=== PATIENT | female | born 1970 | race Caucasian/White ===

== ENCOUNTER 2018-03-29 10:41 | Emergency (ER) | payer OTHER, MEDICAID, SELFPAY ==
[2018-03-29 10:55] VITALS: BP 153/98; PULSE 90; RESP 19; TEMP 36.8; O2SAT 100
[2018-03-29] MEDS: HYDROMORPHONE 2 MG INJ 1 MG IM ×2 (11:25→16:14)
[2018-03-29] MEDS: ALBUTEROL 2.5 MG/3 ML NEB INH (12:32)
--- NOTE | 2018-03-29 12:56 | PC.NURSE ---
Breath sounds clear after Albuterol Neb;
[2018-03-29 13:00] VITALS: BP 129/73; PULSE 77; RESP 14; O2SAT 99
[2018-03-29] MEDS: AMLODIPINE 5 MG TABLET 10 MG PO (14:48)
[2018-03-29 14:49] VITALS: BP 126/73; PULSE 72
[2018-03-29] MEDS: ENALAPRIL 5 MG TABLET 10 MG PO (14:49)
[2018-03-29] MEDS: hydroCHLOROthiazide 25 MG TABLET PO (14:49)
[2018-03-29] MEDS: NICOTINE 21 MG PATCH TOP (14:50)
--- NOTE | 2018-03-29 15:04 | ED_ITS ---
HPI - Back Pain/Injury General Chief Complaint: Back Pain/Injury Stated Complaint: back pain, uncontrolled bladder Time Seen by Provider: 03/29/18 10:47 Source: patient and family Mode of arrival: wheelchair Limitations: no limitations History of Present Illness HPI Narrative: Patient presents to the emergency department today with a chief complaint of worsening back pain and symptoms thought to be related. She has an extensive medical and lumbar history including multiple surgeries starting in 2000 and most recently in 2016. Today she presents with worsening pain which radiates to her right leg. Her right leg has become weak and continues to give out on her and she keeps falling. Additionally she has lost control of her bladder and is incontinent on occasion and cannot start her string when desired. Her 1st visit here was in early February with an MRI that seemed unremarkable for anything acute. She was encouraged to follow up with Orthopedics as an outpatient and ended up presenting to [facility] with worsening symptoms. A repeat MRI noted what could be spinal infection and the patient was transferred to [facility]. She was evaluated by spine and they thought it was more likely poor healing of an L to 3 laminectomy. She was encouraged to follow-up with Dr. Ly as an outpatient, but developed worsening symptoms and return here. She denies any new injury or trauma. She has had no fever or chills MD Complaint: back pain and back injury Onset (ago): year(s) (Overall her symptoms have lasted years however her current symptoms have been worsening over the past few days) Duration: constant Similar Symptoms Previously: Yes Location: lumbar spine Severity: severe Quality: burning Radiation: right leg Severity scale (1-10): 6 Relieving factors: none Exacerbating factors: movement Associated symptoms: weakness, difficulty walking, increased urinary frequency and urinary incontinence Related Data Home Medications Medication Instructions Recorded Confirmed amlodipine [Norvasc] 10 mg PO QDAY #0 02/13/18 03/29/18 clonidine HCl 0.1 mg PO BID #0 02/13/18 03/29/18 enalapril-hydrochlorothiazide 1 tab PO QDAY #0 02/13/18 03/29/18 albuterol sulfate [ProAir HFA] 1 puff INHALATION DIRECTED 03/29/18 03/29/18 clonazepam 0.5 mg PO QHS 03/29/18 03/29/18 clonazepam [Klonopin] 1 mg PO TID 03/29/18 03/29/18 oxycodone-acetaminophen 1 tab PO Q4-6H PRN MDD 6 tabs 03/29/18 03/29/18 Previous Rx's Medication Instructions Recorded gabapentin [Neurontin] 300 mg PO TID 30 Days #0 cap 02/13/18 Allergies Allergy/AdvReac Type Severity Reaction Status Date / Time acetaminophen [From ULTRACET] Allergy Unknown seizure Verified 03/29/18 10:55 alprazolam [From XANAX] Allergy Unknown seizure Verified 03/29/18 10:55 tramadol [From ULTRAM] Allergy Unknown seizure Verified 03/29/18 10:55 venlafaxine [From Effexor] Allergy Verified 03/29/18 10:55 codeine AdvReac Verified 03/29/18 10:55 Review of Systems Review of Systems All systems reviewed & are unremarkable except as noted in HPI and below Constitutional Denies chills, Denies fever(s), Denies lethargy and Reports weakness Eyes Denies change in vision, Denies eye discharge, Denies irritation and Denies loss of vision Cardiovascular Denies chest pain, Denies irregular heart rhythm, Denies lightheadedness, Denies palpitations and Denies orthopnea Gastrointestinal Gastrointestinal: Denies abdominal pain, Denies change in bowel habits, Denies diarrhea, Denies nausea and Denies vomiting Musculoskeletal Reports limited range of motion and Reports muscle weakness Integumentary/Breasts Denies pruritus, Denies erythema, Denies rash and Denies wounds Neurologic Denies loss of vision, Reports radicular pain and Reports weakness Endocrine Denies palpitations [facility] Medical History Angina at rest (Acute) Anxiety (Acute) COPD (chronic obstructive pulmonary disease) (Acute) Hepatitis C (Acute) Migraines (Acute) Surgical History History of lumbar surgery (Acute) Social History Smoking Status: Current every day smoker Exam Narrative Exam Narrative: Pleasant 47-year-old female is tearful, anxious, and in pain Initial Vital Signs Initial Vital Signs: Vital Signs Temperature 98.3 F 03/29/18 10:55 Pulse Rate 90 03/29/18 10:55 Respiratory Rate 19 03/29/18 10:55 Blood Pressure 153/98 H 03/29/18 10:55 Pulse Oximetry 100 03/29/18 10:55 Const General: cooperative, well developed and acute distress Nutritional Appearance: well nourished Orientation: alert, awake, oriented x3 and not confused [facility] Head: normocephalic and atraumatic Ears: external ears normal and TM's normal bilaterally Nose: external nose normal and No nasal discharge Face and sinus: sinuses nontender, face symmetric, no sinus tenderness and No dry mucous membranes Mouth: oral mucosae normal and moist mucous membranes Teeth and gingiva: dentition normal Throat: tonsils normal and uvula midline Resp Effort & Inspection: normal respiratory effort, able to speak in complete sentences, no respiratory distress and no use of accessory muscles Auscultation: clear to auscultation bilaterally, no rales, no rhonchi and no wheezes GI Inspection: non-distended Palpation: soft, no hepatosplenomegaly, No guarding, No pulsatile mass and No tender Auscultation: normal bowel sounds Back/Spine/Pelvis Back: back tenderness and No CVA tenderness Cervical Spine: cervical ROM normal and No pain with cervical ROM Thoracic/Lumbar Spine: thoracic and lumbar spine normal to inspection, surgical scar(s) present and No thoraco-lumbar ROM normal Skin General: no rashes or lesions noted, No jaundice and No petechiae Neuro General: alert, oriented x3, gait abnormal and deep tendon reflexes not 2+ bilaterally (RLE decreased patellar tendon reflex) Cranial Nerves: CN's II-XI intact bilaterally Speech: speech normal Motor: No strength 5/5 throughout and muscle tone abnormal (RLE 4/5 strength) Sensory Exam: no sensory deficits noted Extrem General: No full ROM, capillary refill normal and no calf tenderness Left upper extremity: normal to inspection Right lower extremity: ROM limited Psych Appearance: well kempt Mental Status: mental status grossly normal Attitude: cooperative Thought Content: normal and suicidality Judgment: judgment good Course Orders Ordered: Hydromorphone HCl (Dilaudid) 1 mg IM Q4H PRN PRN Reason: Severe Pain Last Admin: 03/29/18 11:25 Dose: 1 mg Discontinued Medications Albuterol (Ventolin) 2.5 mg INH NOW ONE Stop: 03/29/18 12:11 Last Admin: 03/29/18 12:32 Dose: 2.5 mg Amlodipine Besylate (Norvasc) 10 mg PO NOW ONE Stop: 03/29/18 14:33 Amlodipine Besylate (Norvasc) 10 mg PO NOW ONE Stop: 03/29/18 14:46 Last Admin: 03/29/18 14:48 Dose: 10 mg Enalapril Maleate (Vasotec) 10 mg PO NOW ONE Stop: 03/29/18 14:46 Last Admin: 03/29/18 14:49 Dose: 10 mg Hydrochlorothiazide (Hydrochlorothiazide) 25 mg PO NOW ONE Stop: 03/29/18 14:46 Last Admin: 03/29/18 14:49 Dose: 25 mg Nicotine (Nicoderm) 21 mg TOP NOW ONE Stop: 03/29/18 14:34 Last Admin: 03/29/18 14:50 Dose: 21 mg Vital Signs - 8 hr 03/29/18 10:55 03/29/18 13:00 03/29/18 14:49 Temperature 98.3 F Pulse Rate 90 77 72 Respiratory Rate 19 14 Blood Pressure 153/98 H 126/73 H Blood Pressure [Right Arm] 129/73 H Pulse Oximetry 100 99 MDM - Back Pain/Injury Medical Records Attestation: I reviewed the patient's medical records. Medical records obtained from [facility], and [facility], as well as prior visits here. MDM Narrative Medical decision making narrative: No repeat imaging ordered as patient is declining story and physical exam findings will dictate a transferred. [facility] spine and trauma physicians are in agreement and happy to accept this patient Discharge Plan Departure Patient Disposition: [facility] Clinical Impression: Lumbar back pain with radiculopathy affecting right lower extremity Prescriptions: No Action enalapril-hydrochlorothiazide 10 MG/25 MG tablet 1 tab PO QDAY Qty: 0 RF: 0 clonidine HCl 0.1 MG tablet 0.1 mg PO BID Qty: 0 RF: 0 amlodipine [Norvasc] 10 MG tablet 10 mg PO QDAY Qty: 0 RF: 0 gabapentin [Neurontin] 300 MG capsule 300 mg PO TID 30 Days Qty: 0 RF: 0 albuterol sulfate [ProAir HFA] 90 mcg/actuation Hfa Aerosol Inhaler 1 puff Inhalation DIRECTED RF: 0 clonazepam [Klonopin] 1 MG tablet 1 mg PO TID RF: 0 clonazepam 0.5 mg tablet 0.5 mg PO QHS RF: 0 oxycodone-acetaminophen 5-325 mg tablet 1 tab PO Q4-6H MDD 6 tabs PRN (Reason: Pain, Severe) RF: 0
[2018-03-29 15:22] VITALS: BP 123/71; PULSE 64; RESP 14; O2SAT 100
== END 2018-03-29 16:21 | disposition short-term general hospital (02) ==
PROVIDERS: Emergency Provider Emergency Medicine
DX: M54.17 Radiculopathy, lumbosacral region (principal)
CPT/HCPCS: 51798; 94640; 96372; 99283; 99284; J1170; J7613